=== PATIENT | female | born 1990 | race Caucasian/White ===

== ENCOUNTER 2025-05-30 10:09 | Emergency (ER) | payer OTHER ==
[~2025-05-30] VITALS: Ht 175.2 cm; Wt 75.7 kg
[2025-05-30] MEDS ORDERED: LISSAMINE GREEN 1.5 MG STRIP OP ONE (10:25)
[2025-05-30] MEDS ORDERED: CEPHALEXIN500 M1 PO (10:34)
[2025-05-30] MEDS ORDERED: CIPROFLOXACIN H10 ML OPH (10:34)
== END 2025-05-30 10:34 | disposition home or self-care (01) ==
LOC: ED 10:09
DX: S05.02XA Injury of conjunctiva and corneal abrasion without foreign body, left eye, initial encounter (principal); W22.8XXA Striking against or struck by other objects, initial encounter; Y93.89 Activity, other specified; Y92.89 Other specified places as the place of occurrence of the external cause; Y99.8 Other external cause status